=== PATIENT | female | born 1935 | race Asian ===

== ENCOUNTER 2017-05-20 17:42 | Emergency (ER) | payer OTHER | END 2017-05-21 02:56 | disposition left against medical advice (07) | LOC: E/R 17:42 | DX: Z53.21 Procedure and treatment not carried out due to patient leaving prior to being seen by health care provider (principal) ==

== ENCOUNTER 2017-06-16 19:45 | Inpatient (IN) | payer MEDICARE, MEDICAID, OTHER ==
[2017-06-16] MEDS: morphine 4 MG/ML VIAL IV (20:51)
[2017-06-16] MEDS: LABETALOL HCL 20MG INJ IV (20:51)
[2017-06-16] MEDS: ONDANSETRON 4 MG INJ IV (20:51)
[2017-06-16 21:01] LABS: WHITE BLOOD COUNT 8.4 10^3/ul (4.8-10.8)
[2017-06-16 21:01] LABS: HEMATOCRIT 33.1 % (37.0-47.0); HEMOGLOBIN 11.2 g/dl (12.0-16.0); MEAN CORPUSCULAR HEMOGLOBIN 30.7 pg (29.0-33.0); MEAN CORPUSCULAR HGB CONC 33.8 g/dl (32.0-37.0); MEAN CORPUSCULAR VOLUME 90.7 fl (82.0-101.0); MEAN PLATELET VOLUME 11.6 fl (7.4-10.4); RED BLOOD COUNT 3.65 10^6/ul (4.20-5.40); RED CELL DISTRIBUTION WIDTH 16.1 % (11.5-14.5)
[2017-06-16 21:07] LABS: PLATELET COUNT 134 10^3/UL (140-415); POSITIVE DIFF @See below
[2017-06-16 21:08] LABS: ADD MAN DIFF? YES
[2017-06-16 21:25] LABS: INR 0.87; PROTIME 11.9 Sec (11.9-14.9); PT RATIO 0.9
[2017-06-16 21:26] LABS: PARTIAL THROMBOPLASTIN TIME 31.2 Sec (25.0-35.0)
[2017-06-16 21:29] LABS: ALANINE AMINOTRANSFERASE 21 IU/L (13-69); ALBUMIN 3.8 g/dl (3.3-4.9); ALBUMIN/GLOBULIN RATIO 1.05; ALKALINE PHOSPHATASE 89 IU/L (42-121); AMYLASE 118 U/L (11-123); ANION GAP 15 (8-16); ASPARTATE AMINO TRANSFERASE 26 IU/L (15-46); BLOOD UREA NITROGEN 22 mg/dl (7-20); CARBON DIOXIDE 27 mmol/L (21-31); CHLORIDE 94 mmol/L (97-110); CREATININE 2.55 mg/dl (0.44-1.00); GLUCOSE 114 mg/dl (70-220); LIPASE 530 U/L (23-300); POTASSIUM 3.7 mmol/L (3.5-5.1); SODIUM 132 mmol/L (135-144); TOTAL PROTEIN 7.4 g/dl (6.1-8.1)
[2017-06-16 21:40] LABS: TROPONIN-I 0.017 ng/ml (0.00-0.12)
[2017-06-16 21:52] LABS: ANISOCYTOSIS 1+ (0-0); EOSINOPHILS % (M) 3 % (0-7); GIANT THROMBO% (M) 1 % (0-0); LYMPHOCYTES #M 1.5 10^3/ul (0.8-2.9); LYMPHOCYTES % (M) 18 % (15-51); MONOCYTES % (M) 12 % (0-11); PLATELET ESTIMATE DECREASED; SEGMENTED NEUTROPHILS (M) % 67 % (39-77); SMUDGE%M 9 % (0-0)
[2017-06-16] MEDS ORDERED: ONDANSETRON 4 MG INJ IV (23:30)
[2017-06-16] MEDS ORDERED: ACETAMINOPHEN 325 MG TAB PO (23:30)
[2017-06-17] MEDS: hydrALAzine 20 MG INJ IV (01:46)
[2017-06-17] MEDS: ZOLPIDEM 5 MG TAB PO ×2 (02:25→21:26)
[2017-06-17] MEDS ORDERED: ONDANSETRON 4 MG INJ IV (03:30)
[2017-06-17] MEDS: ALLOPURINOL 100 MG TAB PO ×2 (09:09→14:36)
[2017-06-17] MEDS: METOPROLOL 50 MG TAB PO ×3 (09:09→21:27)
[2017-06-17] MEDS: MEGESTROL (40 MG/ML) 10ML CUP PO (09:09)
[2017-06-17 09:11] LABS: ADD MAN DIFF? NO
[2017-06-17 09:39] LABS: BASOPHIL # 0.1 10^3/ul (0.0-0.1); BASOPHILS % 0.7 % (0.0-2.0); EOSINOPHILS # 0.4 10^3/ul (0.0-0.5); EOSINOPHILS % 5.5 % (0.0-7.0); HEMATOCRIT 29.2 % (37.0-47.0); HEMOGLOBIN 9.8 g/dl (12.0-16.0); LYMPHOCYTES # 1.4 10^3/ul (0.8-2.9); LYMPHOCYTES % 20.9 % (15.0-51.0); MEAN CORPUSCULAR HEMOGLOBIN 30.5 pg (29.0-33.0); MEAN CORPUSCULAR HGB CONC 33.6 g/dl (32.0-37.0); MEAN PLATELET VOLUME 11.8 fl (7.4-10.4); MONOCYTES % 14.1 % (0.0-11.0); NEUTROPHIL # 3.9 10^3/ul (1.6-7.5); NEUTROPHILS % 58.2 % (39.0-77.0); PLATELET COUNT 125 10^3/UL (140-415); RED BLOOD COUNT 3.21 10^6/ul (4.20-5.40); RED CELL DISTRIBUTION WIDTH 16.3 % (11.5-14.5)
[2017-06-17 09:39] LABS: WHITE BLOOD COUNT 6.8 10^3/ul (4.8-10.8)
[2017-06-17 09:44] LABS: ANION GAP 13 (8-16); BLOOD UREA NITROGEN 25 mg/dl (7-20); CALCIUM 9.2 mg/dl (8.4-10.2); CARBON DIOXIDE 28 mmol/L (21-31); CHLORIDE 97 mmol/L (97-110); CREATININE 3.17 mg/dl (0.44-1.00); GLUCOSE 89 mg/dl (70-220); POTASSIUM 4.2 mmol/L (3.5-5.1); SODIUM 134 mmol/L (135-144)
[2017-06-17] MEDS ORDERED: NON-FORMULARY/PATIENT OWN MED (Temazepam* (Restoril*) 15 MG) PO (12:30)
[2017-06-17] MEDS: NIFEdipine (XL) 90 MG TAB PO (14:00)
[2017-06-17] MEDS ORDERED: ATORVASTATIN 20 MG TAB PO (21:00)
[2017-06-17] MEDS: ATORVASTATIN 20 MG TAB PO (21:26)
[2017-06-17] MEDS: SENNA/DOCUSATE NA (8.6MG/50MG) TAB PO (21:26)
[2017-06-18 02:04] LABS: TROPONIN-I 0.028 ng/ml (0.00-0.12)
[2017-06-18] MEDS: NIFEdipine (XL) 60 MG TAB PO (08:14)
[2017-06-18] MEDS: MEGESTROL (40 MG/ML) 10ML CUP PO (08:14)
[2017-06-18] MEDS: METOPROLOL 50 MG TAB PO (08:14)
[2017-06-18] MEDS: ALLOPURINOL 100 MG TAB PO ×2 (08:15)
[2017-06-18] MEDS: SENNA/DOCUSATE NA (8.6MG/50MG) TAB PO (08:15)
[2017-06-18 09:59] LABS: ADD MAN DIFF? NO
[2017-06-18 10:04] LABS: BASOPHIL # 0.1 10^3/ul (0.0-0.1); BASOPHILS % 0.7 % (0.0-2.0); EOSINOPHILS # 0.5 10^3/ul (0.0-0.5); EOSINOPHILS % 6.8 % (0.0-7.0); HEMATOCRIT 31.8 % (37.0-47.0); HEMOGLOBIN 10.5 g/dl (12.0-16.0); LYMPHOCYTES # 0.9 10^3/ul (0.8-2.9); LYMPHOCYTES % 12.5 % (15.0-51.0); MEAN CORPUSCULAR HEMOGLOBIN 30.1 pg (29.0-33.0); MEAN CORPUSCULAR VOLUME 91.1 fl (82.0-101.0); MEAN PLATELET VOLUME 11.6 fl (7.4-10.4); MONOCYTE # 0.7 10^3/ul (0.3-0.9); NEUTROPHIL # 4.9 10^3/ul (1.6-7.5); NEUTROPHILS % 69.9 % (39.0-77.0); PLATELET COUNT 158 10^3/UL (140-415); RED BLOOD COUNT 3.49 10^6/ul (4.20-5.40); RED CELL DISTRIBUTION WIDTH 16.4 % (11.5-14.5)
[2017-06-18 10:24] LABS: ANION GAP 16 (8-16); BLOOD UREA NITROGEN 35 mg/dl (7-20); CARBON DIOXIDE 24 mmol/L (21-31); CHLORIDE 98 mmol/L (97-110); CHOL/HDL RATIO 2.9 RATIO; CHOLESTEROL 125 mg/dl (100-200); GLUCOSE 120 mg/dl (70-220); HDL CHOLESTEROL 43 mg/dl (33-92); LDL CHOLESTEROL,CALCULATED 60 mg/dl; POTASSIUM 4.4 mmol/L (3.5-5.1); SODIUM 134 mmol/L (135-144); TRIGLYCERIDES 108 mg/dl (0-149)
[2017-06-18 10:34] LABS: TROPONIN-I 0.023 ng/ml (0.00-0.12)
[2017-06-18] MEDS ORDERED: [UNRECOGNIZED DRUG - OTHER] TOP ×2 (12:30)
[2017-06-18] MEDS: MAGNESIUM HYDROXIDE 30ML CUP PO (13:14)
[2017-06-18 16:37] LABS: TROPONIN-I < 0.012 ng/ml (0.00-0.12)
== END 2017-06-18 17:55 | disposition home or self-care (01) | DRG 304 ==
LOC: MS4 23:08 → E/R 19:45
DX: I16.1 Hypertensive emergency (principal); N18.6 End stage renal disease; I67.1 Cerebral aneurysm, nonruptured; K86.1 Other chronic pancreatitis; I12.0 Hypertensive chronic kidney disease with stage 5 chronic kidney disease or end stage renal disease; D63.1 Anemia in chronic kidney disease; E78.5 Hyperlipidemia, unspecified; Z99.2 Dependence on renal dialysis
CPT/HCPCS: 70450; 71045; 80048; 80053; 80061; 82150; 83690; 84484; 85025; 85610; 85730; 93005; 93306; 96374; 96375; 99285-25

== ENCOUNTER 2017-06-25 13:59 | Emergency (ER) | payer MEDICARE, MEDICAID ==
[2017-06-25 15:07] LABS: ADD MAN DIFF? NO
[2017-06-25 15:09] LABS: WHITE BLOOD COUNT 5.1 10^3/ul (4.8-10.8)
[2017-06-25 15:09] LABS: BASOPHIL # 0.1 10^3/ul (0.0-0.1); BASOPHILS % 1.4 % (0.0-2.0); EOSINOPHILS # 0.1 10^3/ul (0.0-0.5); HEMATOCRIT 33.2 % (37.0-47.0); HEMOGLOBIN 11.2 g/dl (12.0-16.0); LYMPHOCYTES # 1.3 10^3/ul (0.8-2.9); LYMPHOCYTES % 24.6 % (15.0-51.0); MEAN CORPUSCULAR HEMOGLOBIN 29.8 pg (29.0-33.0); MEAN CORPUSCULAR HGB CONC 33.7 g/dl (32.0-37.0); MEAN CORPUSCULAR VOLUME 88.3 fl (82.0-101.0); MEAN PLATELET VOLUME 11.2 fl (7.4-10.4); MONOCYTE # 0.9 10^3/ul (0.3-0.9); MONOCYTES % 16.7 % (0.0-11.0); NEUTROPHIL # 2.8 10^3/ul (1.6-7.5); NEUTROPHILS % 55.3 % (39.0-77.0); PLATELET COUNT 217 10^3/UL (140-415); RED BLOOD COUNT 3.76 10^6/ul (4.20-5.40); RED CELL DISTRIBUTION WIDTH 15.9 % (11.5-14.5)
[2017-06-25 15:30] LABS: ALANINE AMINOTRANSFERASE 28 IU/L (13-69); ALBUMIN 4.2 g/dl (3.3-4.9); ALBUMIN/GLOBULIN RATIO 1.13; ALKALINE PHOSPHATASE 69 IU/L (42-121); ANION GAP 17 (8-16); ASPARTATE AMINO TRANSFERASE 23 IU/L (15-46); BLOOD UREA NITROGEN 51 mg/dl (7-20); CALCIUM 9.1 mg/dl (8.4-10.2); CARBON DIOXIDE 20 mmol/L (21-31); CHLORIDE 97 mmol/L (97-110); GLUCOSE 139 mg/dl (70-220); POTASSIUM 4.4 mmol/L (3.5-5.1); SODIUM 130 mmol/L (135-144); TOTAL PROTEIN 7.9 g/dl (6.1-8.1)
[2017-06-25 15:42] LABS: TROPONIN-I < 0.012 ng/ml (0.00-0.12)
[2017-06-25 15:53] LABS: LIPASE 663 U/L (23-300)
[2017-06-25] MEDS: hydrALAzine 20 MG INJ IV (17:42)
== END 2017-06-25 19:06 | disposition home or self-care (01) ==
LOC: E/R 13:59
DX: R51 Headache (principal); R53.1 Weakness; D32.9 Benign neoplasm of meninges, unspecified; I72.0 Aneurysm of carotid artery; I12.0 Hypertensive chronic kidney disease with stage 5 chronic kidney disease or end stage renal disease; N18.6 End stage renal disease; Z99.2 Dependence on renal dialysis
CPT/HCPCS: 70450; 71045; 80053; 83690; 84484; 85025; 93005; 96374; 99285-25

== ENCOUNTER 2018-04-05 12:17 | Inpatient (IN) | payer MEDICARE, MEDICAID ==
[2018-04-05 13:12] LABS: ADD MAN DIFF? NO
[2018-04-05] MEDS: ENALAPRILAT 1.25 MG INJ IV (13:16)
[2018-04-05 13:24] LABS: WHITE BLOOD COUNT 6.1 10^3/ul (4.8-10.8)
[2018-04-05 13:24] LABS: BASOPHIL # 0.1 10^3/ul (0.0-0.1); BASOPHILS % 1.3 % (0.0-2.0); EOSINOPHILS # 0.3 10^3/ul (0.0-0.5); EOSINOPHILS % 5.1 % (0.0-7.0); HEMATOCRIT 29.3 % (37.0-47.0); HEMOGLOBIN 9.8 g/dl (12.0-16.0); LYMPHOCYTES # 1.2 10^3/ul (0.8-2.9); LYMPHOCYTES % 19.8 % (15.0-51.0); MEAN CORPUSCULAR HEMOGLOBIN 31.2 pg (29.0-33.0); MEAN CORPUSCULAR HGB CONC 33.4 g/dl (32.0-37.0); MEAN CORPUSCULAR VOLUME 93.3 fl (82.0-101.0); MONOCYTE # 0.8 10^3/ul (0.3-0.9); MONOCYTES % 12.8 % (0.0-11.0); NEUTROPHIL # 3.7 10^3/ul (1.6-7.5); NEUTROPHILS % 60.7 % (39.0-77.0); PLATELET COUNT 193 10^3/UL (140-415); RED BLOOD COUNT 3.14 10^6/ul (4.20-5.40); RED CELL DISTRIBUTION WIDTH 15.1 % (11.5-14.5)
[2018-04-05 13:43] LABS: INR 0.93; PROTIME 12.5 Sec (11.9-14.9)
[2018-04-05 13:44] LABS: PARTIAL THROMBOPLASTIN TIME 33.6 Sec (23.0-35.0)
[2018-04-05 13:47] LABS: ALANINE AMINOTRANSFERASE 7 IU/L (13-69); ALBUMIN 4.4 g/dl (3.3-4.9); ALBUMIN/GLOBULIN RATIO 1.41; ALKALINE PHOSPHATASE 76 IU/L (42-121); ANION GAP 16 (5-13); ASPARTATE AMINO TRANSFERASE 19 IU/L (15-46); BLOOD UREA NITROGEN 26 mg/dl (7-20); CALCIUM 9.1 mg/dl (8.4-10.2); CARBON DIOXIDE 23 mmol/L (21-31); CHLORIDE 96 mmol/L (97-110); CREATININE 4.98 mg/dl (0.44-1.00); GLUCOSE 132 mg/dl (70-220); LIPASE 431 U/L (23-300); SODIUM 135 mmol/L (135-144); TOTAL PROTEIN 7.5 g/dl (6.1-8.1)
[2018-04-05 13:56] LABS: POTASSIUM 2.9 mmol/L (3.5-5.1)
[2018-04-05 13:58] LABS: B-TYPE NATRIURETIC PEPTIDE 20800 PG/ML (0-450); TROPONIN-I 0.031 ng/ml (0.000-0.120)
[2018-04-05 14:16] LABS: ADD UMIC YES; UR ASCORBIC ACID NEGATIVE (NEGATIVE); UR BILIRUBIN (Dip) NEGATIVE (NEGATIVE); UR BLOOD (Dip) NEGATIVE (NEGATIVE); UR CLARITY CLEAR (CLEAR); UR COLOR YELLOW (YELLOW); UR GLUCOSE (Dip) 1+ mg/dL (NEGATIVE); UR KETONES (Dip) NEGATIVE (NEGATIVE); UR LEUKOCYTE ESTERASE (Dip) NEGATIVE Leu/ul (NEGATIVE); UR NITRITE (Dip) NEGATIVE (NEGATIVE); UR RBC 0 /HPF (0-5); UR SPECIFIC GRAVITY (Dip) 1.012 (1.003-1.030); UR TOTAL PROTEIN (Dip) 3+ mg/dl (NEGATIVE); UR UROBILINOGEN (Dip) NEGATIVE (NEGATIVE); UR WBC 0 /HPF (0-5)
[2018-04-05] MEDS: MAGNESIUM SULFATE 2 GM/50 ML 50 ML IVPB (14:54)
[2018-04-05] MEDS ORDERED: ALBUMIN HUMAN 25% 100 ML IV (15:00)
[2018-04-05] MEDS ORDERED: SODIUM CHLORIDE 0.9% 1L BAG IV (15:00)
[2018-04-05] MEDS: POTASSIUM CHLORIDE 100 ML IVPB ×2 (15:20→17:00)
[2018-04-05] MEDS ORDERED: NACL 0.9% 3 ML SYG IV (16:30)
[2018-04-05] MEDS ORDERED: ACETAMINOPHEN 325 MG TAB PO (16:30)
[2018-04-05] MEDS ORDERED: ZOLPIDEM 5 MG TAB PO (16:30)
[2018-04-05] MEDS ORDERED: DOCUSATE SODIUM 100 MG CAP PO (16:30)
[2018-04-05] MEDS ORDERED: ONDANSETRON 4 MG INJ IV (16:30)
[2018-04-05] MEDS ORDERED: HYDROCODONE/APAP (5/325) TAB PO (16:30)
[2018-04-05] MEDS ORDERED: BISACODYL 10 MG SUPP PR (16:30)
[2018-04-05] MEDS: METOPROLOL 50 MG TAB PO (21:00)
[2018-04-05] MEDS: HEPARIN 5,000 UNIT/1 ML VIAL SC (21:00)
[2018-04-05] MEDS: NIFEdipine (XL) 60 MG TAB PO (21:00)
[2018-04-05] MEDS: SENNA/DOCUSATE NA (8.6MG/50MG) TAB PO ×2 (21:00)
[2018-04-05] MEDS: FAMOTIDINE 20 MG TAB PO (21:00)
[2018-04-05] MEDS: ATORVASTATIN 20 MG TAB PO (21:00)
[2018-04-05 21:47] LABS: HEPATITIS B SURFACE ANTIBODY POSITIVE (NEGATIVE); HEPATITIS B SURFACE ANTIGEN NEGATIVE (NEGATIVE)
[2018-04-05 23:50] LABS: POTASSIUM 3.5 mmol/L (3.5-5.1)
[2018-04-06] MEDS: HEPARIN 1000 UNITS/ML 10 ML INJ CATHETER ×2 (00:31→18:03)
[2018-04-06] MEDS: ATORVASTATIN 20 MG TAB PO (00:35)
[2018-04-06] MEDS: METOPROLOL 50 MG TAB PO ×3 (00:36→20:29)
[2018-04-06] MEDS: NIFEdipine (XL) 60 MG TAB PO ×3 (00:36→20:29)
[2018-04-06] MEDS: FAMOTIDINE 20 MG TAB PO ×3 (00:36→20:28)
[2018-04-06] MEDS: TEMAZEPAM 30 MG PO (00:37)
[2018-04-06] MEDS: POTASSIUM CHLORIDE 100 ML IVPB ×2 (01:13)
[2018-04-06 06:07] LABS: ADD MAN DIFF? NO
[2018-04-06 06:20] LABS: BASOPHIL # 0.1 10^3/ul (0.0-0.1); BASOPHILS % 1.8 % (0.0-2.0); EOSINOPHILS # 0.2 10^3/ul (0.0-0.5); EOSINOPHILS % 5.1 % (0.0-7.0); HEMATOCRIT 25.8 % (37.0-47.0); HEMOGLOBIN 8.6 g/dl (12.0-16.0); LYMPHOCYTES # 0.8 10^3/ul (0.8-2.9); LYMPHOCYTES % 20.6 % (15.0-51.0); MEAN CORPUSCULAR HEMOGLOBIN 30.9 pg (29.0-33.0); MEAN CORPUSCULAR HGB CONC 33.3 g/dl (32.0-37.0); MEAN CORPUSCULAR VOLUME 92.8 fl (82.0-101.0); MEAN PLATELET VOLUME 11.5 fl (7.4-10.4); MONOCYTE # 0.6 10^3/ul (0.3-0.9); MONOCYTES % 14.8 % (0.0-11.0); NEUTROPHIL # 2.3 10^3/ul (1.6-7.5); NEUTROPHILS % 57.4 % (39.0-77.0); PLATELET COUNT 155 10^3/UL (140-415); RED BLOOD COUNT 2.78 10^6/ul (4.20-5.40); RED CELL DISTRIBUTION WIDTH 14.8 % (11.5-14.5)
[2018-04-06 06:20] LABS: WHITE BLOOD COUNT 3.9 10^3/ul (4.8-10.8)
[2018-04-06 07:33] LABS: ALANINE AMINOTRANSFERASE 7 IU/L (13-69); ALBUMIN 3.4 g/dl (3.3-4.9); ALBUMIN/GLOBULIN RATIO 1.36; ALKALINE PHOSPHATASE 62 IU/L (42-121); ANION GAP 8 (5-13); ASPARTATE AMINO TRANSFERASE 17 IU/L (15-46); BILIRUBIN,INDIRECT 0.2 mg/dl (0-1.1); BILIRUBIN,TOTAL 0.2 mg/dl (0.2-1.3); BLOOD UREA NITROGEN 8 mg/dl (7-20); CALCIUM 8.6 mg/dl (8.4-10.2); CARBON DIOXIDE 29 mmol/L (21-31); CHLORIDE 101 mmol/L (97-110); CREATININE 2.43 mg/dl (0.44-1.00); GLUCOSE 85 mg/dl (70-220); POTASSIUM 3.8 mmol/L (3.5-5.1); SODIUM 138 mmol/L (135-144); TOTAL PROTEIN 5.9 g/dl (6.1-8.1)
[2018-04-06] MEDS ORDERED: HEPARIN 5,000 UNIT/0.5 ML VIAL ×2 (08:19→20:21)
[2018-04-06] MEDS: ALLOPURINOL 100 MG TAB PO (09:30)
[2018-04-06] MEDS: SENNA/DOCUSATE NA (8.6MG/50MG) TAB PO ×2 (09:30→20:29)
[2018-04-06] MEDS: HEPARIN 5,000 UNIT/1 ML VIAL SC ×2 (09:49→20:33)
[2018-04-06 10:59] LABS: LIPASE 405 U/L (23-300)
[2018-04-06 11:08] LABS: B-TYPE NATRIURETIC PEPTIDE 18900 PG/ML (0-450)
[2018-04-06] MEDS: EPOETIN 3000 UNITS/1 ML INJ (ESRD) SC (17:20)
== END 2018-04-06 21:20 | disposition left against medical advice (07) | DRG 640 ==
LOC: E/R 12:17 → TEL 15:12
PROC: 5A1D70Z Performance of Urinary Filtration, Intermittent, Less than 6 Hours Per Day (ICD-10-PCS; principal; 2018-04-06)
DX: E87.70 Fluid overload, unspecified (principal); N18.6 End stage renal disease; I12.0 Hypertensive chronic kidney disease with stage 5 chronic kidney disease or end stage renal disease; E11.22 Type 2 diabetes mellitus with diabetic chronic kidney disease; I67.1 Cerebral aneurysm, nonruptured; E78.00 Pure hypercholesterolemia, unspecified; D63.8 Anemia in other chronic diseases classified elsewhere; E87.6 Hypokalemia; Z90.49 Acquired absence of other specified parts of digestive tract; Z99.2 Dependence on renal dialysis
CPT/HCPCS: 36415; 70450; 71045; 80053; 81001; 83690; 83880; 84132; 84484; 85025; 85610; 85730; 86706; 87340; 90935; 93005; 96365; 99291-25

== ENCOUNTER 2018-06-19 12:48 | Emergency (ER) | payer MEDICARE ==
[2018-06-19 13:55] LABS: ADD MAN DIFF? NO
[2018-06-19] MEDS: morphine 2 MG INJ IV ×2 (13:55→15:45)
[2018-06-19 13:59] LABS: WHITE BLOOD COUNT 6.4 10^3/ul (4.8-10.8)
[2018-06-19 13:59] LABS: BASOPHILS % 0.6 % (0.0-2.0); EOSINOPHILS # 0.1 10^3/ul (0.0-0.5); EOSINOPHILS % 0.9 % (0.0-7.0); HEMATOCRIT 46.1 % (37.0-47.0); HEMOGLOBIN 15.1 g/dl (12.0-16.0); LYMPHOCYTES % 15.3 % (15.0-51.0); MEAN CORPUSCULAR HEMOGLOBIN 30.9 pg (29.0-33.0); MEAN CORPUSCULAR HGB CONC 32.8 g/dl (32.0-37.0); MEAN CORPUSCULAR VOLUME 94.5 fl (82.0-101.0); MEAN PLATELET VOLUME 11.5 fl (7.4-10.4); MONOCYTE # 0.5 10^3/ul (0.3-0.9); MONOCYTES % 8.1 % (0.0-11.0); NEUTROPHIL # 4.8 10^3/ul (1.6-7.5); NEUTROPHILS % 74.6 % (39.0-77.0); PLATELET COUNT 151 10^3/UL (140-415); RED BLOOD COUNT 4.88 10^6/ul (4.20-5.40); RED CELL DISTRIBUTION WIDTH 14.1 % (11.5-14.5)
[2018-06-19 14:16] LABS: ANION GAP 9 (5-13); BLOOD UREA NITROGEN 22 mg/dl (7-20); CARBON DIOXIDE 28 mmol/L (21-31); CHLORIDE 105 mmol/L (97-110); CREATININE 4.21 mg/dl (0.44-1.00); GLUCOSE 127 mg/dl (70-220); SODIUM 142 mmol/L (135-144)
[2018-06-19 15:13] LABS: ADD UMIC YES; UR ASCORBIC ACID NEGATIVE (NEGATIVE); UR BACTERIA MODERATE /HPF (NONE SEEN); UR BILIRUBIN (Dip) NEGATIVE (NEGATIVE); UR BLOOD (Dip) NEGATIVE (NEGATIVE); UR CLARITY CLOUDY (CLEAR); UR COLOR YELLOW (YELLOW); UR GLUCOSE (Dip) NEGATIVE (NEGATIVE); UR KETONES (Dip) NEGATIVE (NEGATIVE); UR LEUKOCYTE ESTERASE (Dip) 3+ Leu/ul (NEGATIVE); UR NITRITE (Dip) NEGATIVE (NEGATIVE); UR RBC 4 /HPF (0-5); UR SPECIFIC GRAVITY (Dip) 1.011 (1.003-1.030); UR SQUAMOUS EPITHELIAL CELL MANY /HPF (FEW); UR TOTAL PROTEIN (Dip) 3+ mg/dl (NEGATIVE); UR UROBILINOGEN (Dip) NEGATIVE (NEGATIVE); UR WBC > 182 /HPF (0-5)
[2018-06-19] MEDS ORDERED: morphine 2 MG INJ IV (15:35)
[2018-06-19] MEDS: CEFTRIAXONE 1 GM/50 ML (PMX) 50 ML IVPB (16:03)
== END 2018-06-19 17:05 | disposition home or self-care (01) ==
LOC: E/R 12:48
DX: M54.5 Low back pain (principal); I12.0 Hypertensive chronic kidney disease with stage 5 chronic kidney disease or end stage renal disease; N18.6 End stage renal disease; N39.0 Urinary tract infection, site not specified; Z86.011 Personal history of benign neoplasm of the brain; Z99.2 Dependence on renal dialysis
CPT/HCPCS: 36415; 72100; 80048; 81001; 85025; 87086; 96374; 96375; 96376; 99284-25